=== PATIENT | female | born 1930 | race Hispanic/Latino ===

== ENCOUNTER → 2022-06-18 | Outpatient (CLI) | payer OTHER, MEDICARE | END | disposition home or self-care (01) | LOC: SHCH 13:57 | PROVIDERS: ATTEND Internal Medicine Cardiovascular Disease | DX: I11.9 Hypertensive heart disease without heart failure (principal); I10 Essential (primary) hypertension; R07.1 Chest pain on breathing | CPT/HCPCS: 93306 ==

== ENCOUNTER → 2022-06-20 | Outpatient (CLI) | payer OTHER, MEDICARE ==
[~2022-06-20] MED LIST: REGADENOSON 0.4 MG/5 ML PF SYG IVP SCH
== END | disposition home or self-care (01) ==
LOC: SHCH 08:36
PROVIDERS: ATTEND Internal Medicine Cardiovascular Disease
DX: R07.9 Chest pain, unspecified (principal); I10 Essential (primary) hypertension
CPT/HCPCS: 78452; 96374; 93017; J2785; A9500 ×2